=== PATIENT | male | born 1990 | race African-American/Black ===

== ENCOUNTER 2018-04-13 19:57 | Emergency (ER) | payer MEDICAID ==
[~2018-04-13] VITALS: Ht 172.7 cm; Wt 66.5 kg
[2018-04-13 20:27] VITALS: Ht 172.7 cm; Wt 66.5 kg
--- NOTE | 2018-04-13 22:35 | PSY ---
Date/Time of Note Date/Time of Note DATE: 04/13/18 TIME: 22:17 Psychiatric Subjective Eval Consent Pt consented to telemedicine: Yes Subjective Evaluation Patient location: emergency Chief Complaint: SUICIDAL ATTEMP TODAY, STATES TOOK NYQUIL, MELATONIN AND RX MEDS History of present illness History was difficult to obtain due to his level of sedation and confusion likely secondary to consuming an entire bottle of NyQuil. His friend Monique was present and contributed history with his permission. He presented after drinking a bottle of NyQuil and a few prescription pills that he bought off the street as well as a few pills of melatonin and this was after drinking alcohol all day. Previously he had sent text messages to family out of state indicating that this might be his last day alive and saying goodbye to people. He had been living in an apartment but the lease was up, and he couldn't find anywhere else to stay within his budget and became homeless. He has been telling his friend about how paranoid he is feeling that people are always talking about him behind his back. Past psychiatric history He denied any past psychiatric history or hospitalizations. Hospitalization: Suicidal Attempt(s) (He stated he has tried to commit suicide in the past. ) Family History Has a twin brother who takes medication for Schizophrenia and depression. Possible family history of other mental illnesses. Allergies: Coded Allergies: No Known Allergy (Unverified , 04/13/18) Substance Abuse Substance use: other Substance abuse history: Yes (Drinks 2-4 beers daily and sometimes more on weekends. Some wine as well. Stated he uses cocaine once a month (friend stated more like every two weeks).) Prior substance abuse treatmen: No Social History Marital status: single DPA/Conservatorship: No Occupation/Senior Living: Works nights at [employer] Psychiatric Objective Eval Mental Status Examination: Appearance: Disheveled Eye Contact: Fair Psychomotor Activity: Normal Behavior: Cooperative Speech: Soft AFFECT: Flat Mood: Depressed Though Process: Linear Thought Content: Normal Suicidal: Yes Homicidal: No On 72 hour hold: No Orientation: x2 Cognition: Drowsy Insight: Impared Judgement: Impared Attention Span: Intact Laboratory Results Laboratory Tests Test 04/13/18 21:15 White Blood Count 5.9 10^3/ul Red Blood Count 4.39 10^6/ul Hemoglobin 13.9 g/dl Hematocrit 37.0 % Mean Corpuscular Volume 84.3 fl Mean Corpuscular Hemoglobin 31.7 pg Mean Corpuscular Hemoglobin Concent 37.6 g/dl Red Cell Distribution Width 13.3 % Platelet Count 247 10^3/UL Mean Platelet Volume 9.8 fl Immature Granulocytes % 0.200 % Neutrophils % 58.8 % Lymphocytes % 29.5 % Monocytes % 10.5 % Eosinophils % 0.8 % Basophils % 0.2 % Nucleated Red Blood Cells % 0.0 /100WBC Immature Granulocytes # 0.010 10^3/ul Neutrophils # 3.5 10^3/ul Lymphocytes # 1.8 10^3/ul Monocytes # 0.6 10^3/ul Eosinophils # 0.1 10^3/ul Basophils # 0.0 10^3/ul Nucleated Red Blood Cells # 0.0 10^3/ul Urine Color YELLOW Urine Clarity CLEAR Urine pH 5.0 Urine Specific [place] 1.019 Urine Ketones TRACE mg/dL Urine Nitrite NEGATIVE mg/dL Urine Bilirubin NEGATIVE mg/dL Urine Urobilinogen 1+ mg/dL Urine Leukocyte Esterase NEGATIVE [place]/ul Urine Hemoglobin NEGATIVE mg/dL Urine Glucose NEGATIVE mg/dL Urine Total Protein NEGATIVE mg/dl Sodium Level 141 mmol/L Potassium Level 3.8 mmol/L Chloride Level 104 mmol/L Carbon Dioxide Level 27 mmol/L Anion Gap 10 Blood Urea Nitrogen 13 mg/dl Creatinine 1.16 mg/dl Est Glomerular Filtrat Rate mL/min > 60 mL/min Glucose Level 95 mg/dl Calcium Level 9.6 mg/dl Total Bilirubin 0.1 mg/dl Direct Bilirubin 0.00 mg/dl Indirect Bilirubin 0.1 mg/dl Aspartate Amino Transf (AST/SGOT) 27 IU/L Alanine Aminotransferase (ALT/SGPT) 18 IU/L Alkaline Phosphatase 59 IU/L Total Protein 7.2 g/dl Albumin 4.0 g/dl Globulin 3.20 g/dl Albumin/Globulin Ratio 1.25 Salicylates Level < 1.0 mg/dl Urine Opiates Screen Negative Acetaminophen Level < 10.0 ug/ml Urine Barbiturates Negative Urine Amphetamines Screen Negative Urine Benzodiazepines Screen Positive Urine Cocaine Screen Positive Urine Cannabinoids Negative Ethyl Alcohol Level < 10.0 mg/dl Assessment and Plan Assessment/Diagnosis Diagnosis Unspecified Depressive Disorder, Delirium, Stimulant Abuse (Cocaine), Alcohol Abuse Recommendation/Plan Multiple antipsychotics: No Discharge Disposition: Psychiatric inpatient Legal Status: Place involuntary hold Other Untreated depression and substance abuse with a significant overdose today. ZACK MADRID MD Apr 13, 2018 22:28
--- NOTE | 2018-04-14 01:17 | ERD ---
ER Documentation Chief Complaint Chief Complaint SUICIDAL ATTEMP TODAY, STATES TOOK NYQUIL, MELATONIN AND RX MEDS HPI 27 year old male presents for evaluation of suicidal ideations. Pt states took nyquil and melatonin. Does not know how much. Denies fever, no chest pain or shortness of breath ROS All systems reviewed and are negative except as per history of present illness. Allergies Allergies: Coded Allergies: No Known Allergy (Unverified , 04/13/18) PMhx/Soc Medical and Surgical Hx: pt denies Medical Hx, pt denies Surgical Hx History of Surgery: No Anesthesia Reaction: No Hx Neurological Disorder: No Hx Respiratory Disorders: No Hx Cardiac Disorders: No Hx Psychiatric Problems: No Hx Miscellaneous Medical Probl: No Hx Alcohol Use: Yes (WINE, BEER. LAST USE 04/13/18) Hx Substance Use: Yes (COCAINE, LAST USE 04/13/18) Hx Tobacco Use: Yes Smoking Status: Current some day smoker Physical Exam Vitals Vital Signs Date Temp Pulse Resp B/P (MAP) Pulse Ox O2 O2 Flow FiO2 Time Delivery Rate 04/13/18 98.4 72 18 115/70 98 Room Air 21:10 (85) 04/13/18 98.0 80 16 124/61 97 20:27 (82) Physical Exam Const: No acute distress Head: Atraumatic Eyes: Normal Conjunctiva ENT: Normal External Ears, Nose and Mouth. Neck: Full range of motion. No meningismus. Resp: Clear to auscultation bilaterally Cardio: Regular rate and rhythm, no murmurs Abd: Soft, non tender, non distended. Normal bowel sounds Skin: No petechiae or rashes Back: No midline or flank tenderness Ext: No cyanosis, or edema Neur: Awake and alert Psych: Normal Mood and Affect Result Diagram: 04/13/18211404/13/182114 Results 24 hrs Laboratory Tests Test 04/13/18 21:15 White Blood Count 5.9 10^3/ul Red Blood Count 4.39 10^6/ul Hemoglobin 13.9 g/dl Hematocrit 37.0 % Mean Corpuscular Volume 84.3 fl Mean Corpuscular Hemoglobin 31.7 pg Mean Corpuscular Hemoglobin Concent 37.6 g/dl Red Cell Distribution Width 13.3 % Platelet Count 247 10^3/UL Mean Platelet Volume 9.8 fl Immature Granulocytes % 0.200 % Neutrophils % 58.8 % Lymphocytes % 29.5 % Monocytes % 10.5 % Eosinophils % 0.8 % Basophils % 0.2 % Nucleated Red Blood Cells % 0.0 /100WBC Immature Granulocytes # 0.010 10^3/ul Neutrophils # 3.5 10^3/ul Lymphocytes # 1.8 10^3/ul Monocytes # 0.6 10^3/ul Eosinophils # 0.1 10^3/ul Basophils # 0.0 10^3/ul Nucleated Red Blood Cells # 0.0 10^3/ul Urine Color YELLOW Urine Clarity CLEAR Urine pH 5.0 Urine Specific [place] 1.019 Urine Ketones TRACE mg/dL Urine Nitrite NEGATIVE mg/dL Urine Bilirubin NEGATIVE mg/dL Urine Urobilinogen 1+ mg/dL Urine Leukocyte Esterase NEGATIVE [place]/ul Urine Hemoglobin NEGATIVE mg/dL Urine Glucose NEGATIVE mg/dL Urine Total Protein NEGATIVE mg/dl Sodium Level 141 mmol/L Potassium Level 3.8 mmol/L Chloride Level 104 mmol/L Carbon Dioxide Level 27 mmol/L Anion Gap 10 Blood Urea Nitrogen 13 mg/dl Creatinine 1.16 mg/dl Est Glomerular Filtrat Rate mL/min > 60 mL/min Glucose Level 95 mg/dl Calcium Level 9.6 mg/dl Total Bilirubin 0.1 mg/dl Direct Bilirubin 0.00 mg/dl Indirect Bilirubin 0.1 mg/dl Aspartate Amino Transf (AST/SGOT) 27 IU/L Alanine Aminotransferase (ALT/SGPT) 18 IU/L Alkaline Phosphatase 59 IU/L Total Protein 7.2 g/dl Albumin 4.0 g/dl Globulin 3.20 g/dl Albumin/Globulin Ratio 1.25 Salicylates Level < 1.0 mg/dl Urine Opiates Screen Negative Acetaminophen Level < 10.0 ug/ml Urine Barbiturates Negative Urine Amphetamines Screen Negative Urine Benzodiazepines Screen Positive Urine Cocaine Screen Positive Urine Cannabinoids Negative Ethyl Alcohol Level < 10.0 mg/dl Procedures/MDM 27 year old male presents with suicidal ideations with intentional ingestion. Pt has no overt toxidrome, is non-toxic. Concern for danger to self. Psychiatry consulted and will place on a hold. Patient is medically cleared at this point. Departure Diagnosis: Primary Impression: Suicide threat or attempt Condition: RAVEN Madrid MD Apr 14, 2018 01:16
[2018-04-14 05:15] VITALS: BP 121/70; PULSE 70; RESP 18
== END 2018-04-14 06:23 ==
LOC: E/R 19:57
DX: T14.91XA Suicide attempt, initial encounter (principal); T38.892A Poisoning by other hormones and synthetic substitutes, intentional self-harm, initial encounter; T45.0X2A Poisoning by antiallergic and antiemetic drugs, intentional self-harm, initial encounter; F17.210 Nicotine dependence, cigarettes, uncomplicated; X58.XXXA Exposure to other specified factors, initial encounter; Y92.9 Unspecified place or not applicable
CPT/HCPCS: 36415; 80053; 80307; 81003; 85025; 93005; Z7502